=== PATIENT | female | born 1980 | race Caucasian/White ===

== ENCOUNTER 2016-09-14 06:28 | Day surgery (SDC) | payer BC ==
--- NOTE | ~2016-09-14 | EGD ---
EGD REPORT [facility] [address] [address] NAME: NO LEE : [birth year] STATUS : REG [facility] PAT#: [id number] AGE: 36 ADM/REG DATE : 09/14/16 MR#: [id number] REPORT SERV DATE: 09/14/16 DICTATED BY: ALLEN PURCELL DATE: 09/14/16 REPORT STATUS : Draft TRANSCRIBED BY: [facility] DATE: 09/14/16 Endoscopy Center Patient Name: No Lee Date of : 1980 Attending MD: ALLEN PURCELL MD Procedure Date No Time: 09/14/2016 Procedure: Upper GI endoscopy Indications: Anemia, Suspected gastro-esophageal reflux disease, Diarrhea Referring MD: JOSELINE TAYLOR Medicines: Monitored Anesthesia Care Complications: No immediate complications. Procedure: Pre-Anesthesia Assessment: - ASA Grade Assessment: III - A patient with severe systemic disease. After obtaining informed consent, the endoscope was passed under direct vision. Throughout the procedure, the patient's blood pressure, pulse, and oxygen saturations were monitored continuously. The GIF H190 [id number] was introduced through the mouth, and advanced to the second part of duodenum. The upper GI endoscopy was accomplished without difficulty. The patient tolerated the procedure well. Findings: The Z-line was irregular and was found at the gastroesophageal junction. Biopsies were taken with a cold forceps for histology. The entire examined stomach was normal. The cardia and gastric fundus were normal on retroflexion. The duodenal bulb and 2nd part of the duodenum were normal. Biopsies were taken with a cold forceps for histology. Impression: - Z-line irregular, at the gastroesophageal junction. Biopsied. - Normal stomach. - Normal duodenal bulb and 2nd part of the duodenum. Biopsied. Recommendation: - Await pathology results. - Follow an antireflux regimen. Procedure Code(s): --- Professional --- 70780, Esophagogastroduodenoscopy, flexible, transoral; with biopsy, single or multiple EGD REPORT [address] [place]. [address] NAME: NO LEE : [birth year] STATUS : REG [facility] PAT#: [id number] AGE: 36 ADM/REG DATE : 09/14/16 MR#: [id number] REPORT SERV DATE: 09/14/16 DICTATED BY: ALLEN PURCELL DATE: 09/14/16 REPORT STATUS : Draft TRANSCRIBED BY: [employer] DATE: 09/14/16 Diagnosis Code(s): --- Professional --- K22.8, Other specified diseases of esophagus D64.9, Anemia, unspecified R19.7, Diarrhea, unspecified CPT copyright 2013 [employer]. All rights reserved. The codes documented in this report are preliminary and upon drill operator pneumatic review may be revised to meet current compliance requirements. ALLEN PURCELL MD 09/14/2016 9:01 AM This report has been signed electronically. Number of Addenda: 0 Note Initiated On: 09/14/2016 8:49 AM Scope Withdrawal Time 0 hours 0 minutes [address] [place], [place] [address] [address]
--- NOTE | ~2016-09-14 | EGD ---
EGD REPORT [facility] [address] [place] [address] NAME: NO LEE : [birth year] STATUS : REG [facility]#: [id number] AGE: 36 ADM/REG DATE : 09/14/16 MR#: [id number] REPORT SERV DATE: 09/14/16 DICTATED BY: DATE: REPORT STATUS : Draft TRANSCRIBED BY: [employer] DATE: 09/14/16 Endoscopy Center Patient Name: No Lee Date of : 1980 Attending MD: ALLEN PURCELL MD Procedure Date No Time: 09/14/2016 Procedure: Colonoscopy Indications: Clinically significant diarrhea of unexplained origin Referring MD: JOSELINE TAYLOR Medicines: Monitored Anesthesia Care Complications: No immediate complications. Procedure: Pre-Anesthesia Assessment: - ASA Grade Assessment: III - A patient with severe systemic disease. After I obtained informed consent, the scope was passed under direct vision. Throughout the procedure, the patient's blood pressure, pulse, and oxygen saturations were monitored continuously. The PCF [id number] was introduced through the anus and advanced to the cecum, identified by appendiceal orifice and ileocecal valve. The colonoscopy was performed with moderate difficulty due to significant looping and the patient's body habitus. The patient tolerated the procedure well. The quality of the bowel preparation was fair. Findings: The digital rectal exam was normal. Pertinent negatives include no palpable rectal lesions. The ascending colon appeared normal. Biopsies were taken with a cold forceps for evaluation of microscopic colitis. The sigmoid colon appeared normal. Biopsies were taken with a cold forceps for evaluation of microscopic colitis. The rectum appeared normal. Biopsies were taken with a cold forceps for evaluation of microscopic colitis. Hemorrhoids were found during retroflexion and were mild. Impression: - The ascending colon is normal. Biopsied. - The sigmoid colon is normal. Biopsied. - The rectum is normal. Biopsied. - Hemorrhoids. Recommendation: - Patient has a contact number available for emergencies. The signs and symptoms of potential delayed complications were discussed with the patient. Return to normal activities tomorrow. Written discharge EGD REPORT [facility] [address] [facility] [place]. [address] NAME: NO LEE : [birth year] STATUS : REG [facility]#: [id number] AGE: 36 ADM/REG DATE : 09/14/16 MR#: [id number] REPORT SERV DATE: 09/14/16 DICTATED BY: DATE: REPORT STATUS : Draft TRANSCRIBED BY: [email or web address] DATE: 09/14/16 instructions were provided to the patient. - Regular diet. - Continue present medications. - Await pathology results. - Repeat colonoscopy at age 51 for screening purposes. - Return to GI clinic in 1 month. Procedure Code(s): --- Professional --- 61117, Colonoscopy, flexible, proximal to splenic flexure; with biopsy, single or multiple Diagnosis Code(s): --- Professional --- K64.9, Unspecified hemorrhoids R19.7, Diarrhea, unspecified CPT copyright 2013 [employer]. All rights reserved. The codes documented in this report are preliminary and upon former hand review may be revised to meet current compliance requirements. ALLEN PURCELL MD 09/14/2016 9:15 AM This report has been signed electronically. Number of Addenda: 0 Note Initiated On: 09/14/2016 8:43 AM Scope Withdrawal Time 0 hours 6 minutes 8 seconds [address] [place] [address]
[~2016-09-14 06:28] MED LIST: CIP5 PO; FISH OIL PO; HCTZ25B PO; HYDROCHLOROT25 MG PO; INDE80 PO; INDE80LA PO; MARI5; MULTIVIT/MIN PO; NORCO1 TAB PO; OXYCODONE; PR25 PO; PRILOSEC40 MG PO; PROAIR HFA INH; PROTONIX PO; TORATAB; URIBEL PO; WELCHOL 625 MG625 MG PO; ZOFRAN ODT4 MG PO; ZOFRAN ODT4 MG SL
[2016-09-15] MEDS ORDERED: INDE80LA PO (09:38)
[2016-09-15] MEDS ORDERED: HYDROCHLOROT25 MG PO (09:39)
[2016-09-15] MEDS ORDERED: BENTYL10 PO (09:39)
[2016-09-15] MEDS ORDERED: PRILOSEC40 MG PO (09:39)
[2016-09-15] MEDS ORDERED: LEVSINTAB PO (09:40)
[2016-09-15] MEDS ORDERED: ZANTAC 150 PO (09:40)
[2016-09-15] MEDS ORDERED: CLINDA150 PO (09:40)
[2016-09-15] MEDS ORDERED: PROVHFA INH (09:41)
== END 2016-09-14 23:59 | disposition home or self-care (01) ==
LOC: DMU 06:28
PROVIDERS: Internal Medicine Gastroenterology
PROC: 0DBN8ZX Excision of Sigmoid Colon, Via Natural or Artificial Opening Endoscopic, Diagnostic (ICD-10-PCS; 2016-09-14)
PROC: 0DB48ZX Excision of Esophagogastric Junction, Via Natural or Artificial Opening Endoscopic, Diagnostic (ICD-10-PCS; 2016-09-14)
PROC: 0DB28ZX Excision of Middle Esophagus, Via Natural or Artificial Opening Endoscopic, Diagnostic (ICD-10-PCS; 2016-09-14)
PROC: 0DBK8ZX Excision of Ascending Colon, Via Natural or Artificial Opening Endoscopic, Diagnostic (ICD-10-PCS; principal; 2016-09-14 08:30)
PROC: 0DBP8ZX Excision of Rectum, Via Natural or Artificial Opening Endoscopic, Diagnostic (ICD-10-PCS; 2016-09-14 08:30)
DX: K64.9 Unspecified hemorrhoids (principal); R19.7 Diarrhea, unspecified; K22.8 Other specified diseases of esophagus; D64.9 Anemia, unspecified; I10 Essential (primary) hypertension; E66.01 Morbid (severe) obesity due to excess calories; G47.33 Obstructive sleep apnea (adult) (pediatric); N80.0 Endometriosis of uterus; K21.9 Gastro-esophageal reflux disease without esophagitis; G43.909 Migraine, unspecified, not intractable, without status migrainosus; Z90.49 Acquired absence of other specified parts of digestive tract; Z98.890 Other specified postprocedural states; Z87.442 Personal history of urinary calculi; Z90.89 Acquired absence of other organs; Z88.5 Allergy status to narcotic agent; Z88.0 Allergy status to penicillin; Z88.1 Allergy status to other antibiotic agents
CPT/HCPCS: 84703; 88305; J1980; J2550

== ENCOUNTER 2016-09-15 03:56 | Observation (INO) | payer BC ==
--- NOTE | ~2016-09-15 | CN ---
Consultation Report [facility] [address] [place]. [address] NAME: ANNIE LEE : [birth year] STATUS : ADM Gavi PAT#: [id number] AGE: 36 ADM/REG DATE : 09/15/16 MR#: [id number] REPORT SERV DATE: 09/15/16 DICTATED BY: SHAHRAM FARLEY DATE: 09/15/16 REPORT STATUS : Draft TRANSCRIBED BY: MODL DATE: 09/15/16 GI CONSULTATION DATE OF CONSULTATION: 09/15/2016 REASON FOR CONSULTATION: Evaluation and management of abdominal pain. HISTORY OF PRESENT ILLNESS: Ms. Lee is a 36-year-old female patient, known to Dr. Nick Olea in the outpatient setting, who just had EGD and colonoscopy with him on 09/14/2016, who presented last night to the emergency room for chest pain. She states that she has been having "GI issues" for around three months. She tells me that she has lost around 30 pounds. She has had abdominal pain, right upper quadrant as well as lower abdomen. She states she has lost 30 somewhat pounds. She has also experienced nausea, vomiting, and diarrhea. Endoscopy yesterday on the upper exam revealed an irregular Z-line at the GE junction. He did biopsy this area. She had a normal stomach, normal duodenal bulb and second part of the duodenum with biopsies being taken. She then had a colonoscopy, which revealed normal ascending colon. He did biopsies; sigmoid colon was normal with biopsies, rectum was normal with biopsies and she had hemorrhoids. She was discharged to home. She tells me that she told preop that she was having some discomfort in her chest, but EKG and workup was negative, thus they proceeded with the exam. She states when she got home, she tried to become comfortable, was not able to do so, thus presented to [facility] Emergency Room with the chief complaint of chest pain. She has had a CT of the abdomen and pelvis, which was negative; CTA of the chest, which was negative for any PE. Her white blood cell count is normal at 8.8, hemoglobin 11.9, hematocrit is 34.7. Liver function testing was normal. She states that she is comfortable now secondary to IV pain medications, but is fearful that when those wear off, she will be right back "where I started." I have discussed with her, we will address GI medications as well as consider this possibly being musculoskeletal in nature. Her mother is at the bedside. All questions were answered and entertained. PAST MEDICAL HISTORY: Positive for morbid obesity, hypertension, UTI, kidney stones, migraine headaches, endometriosis, atrial fibrillation in 2001, GERD, and dilation of the esophagus. SURGICAL HISTORY: Endometrial ablation x2, eustachian tubes as a child, tonsillectomy, ureteral stent and subsequent extraction, and root canal. FAMILY HISTORY: Noncontributory from a GI standpoint. 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 She denies tobacco. Rare alcohol. No illicit drugs. ALLERGIES: CONSIST OF PENICILLIN, BACTRIM, SUMATRIPTAN, FALLON, AND CODEINE. Consultation Report [address] [address] NAME: ANNIE LEE : [birth year] STATUS : ADM Gavi PAT#: [id number] AGE: 36 ADM/REG DATE : 09/15/16 MR#: [id number] REPORT SERV DATE: 09/15/16 DICTATED BY: SHAHRAM FARLEY DATE: 09/15/16 REPORT STATUS : Draft TRANSCRIBED BY: LIBIA DATE: 09/15/16 HOME MEDICATIONS: Proventil, Cleocin, Bentyl, hydrochlorothiazide, Levsin, Prilosec, Inderal, and Zantac. REVIEW OF SYSTEMS: A 10-point review of systems has been obtained with pertinent positives being addressed in the history of present illness. PERTINENT LABORATORY DATA: Sodium 141, potassium 4, BUN is 10, creatinine is 0.8. White count 8.8, hemoglobin 11.9, hematocrit is 34.7. Total bilirubin 0.7, alkaline phosphatase 97, ALT 17, AST 12, lipase 122. PHYSICAL EXAMINATION: VITAL SIGNS: Temperature is 97.7, pulse 77, respirations 18, blood pressure is 97/57. GENERAL: Reveals an alert, obese female, resting in bed, who awakens to name. Cooperative. No apparent acute distress. Obese body habitus. HEAD, EARS, EYES, NOSE, AND THROAT: Anicteric. Pupils equal, round, reactive to light and accommodation. Normocephalic and atraumatic. NECK: No JVD. No palpable nodes. Supple. LUNGS: Decreased throughout. Normal respiratory effort exhibited. CARDIOVASCULAR: Regular rate and rhythm. ABDOMEN: Soft, nontender, obese, but no rebound or guarding elicited on exam. No organomegaly appreciated. EXTREMITIES: No edema. Normal distal pulses. SKIN: Warm, dry, and intact. ASSESSMENT: 1. Chest pain. 2. Right upper quadrant pain and right breast pain, question pleuritic. 3. Weight loss. 4. Diarrhea. PLAN: 1. I question if this is musculoskeletal or pleuritic in nature. She has a recent, as of 09/14/2016, negative EGD and colonoscopy. She has had a negative CT chest abdomen and pelvis. 2. We will add scheduled simethicone. 3. We will put a Lidoderm patch on her. 4. We will add GI cocktail. 5. Stool studies for diarrhea. We will follow. LEATHA/LIBIA Shahram Consultation Report [address] [facility] [address] NAME: ANNIE LEE : [birth year] STATUS : ADM Gavi PAT#: [id number] AGE: 36 ADM/REG DATE : 09/15/16 MR#: [id number] REPORT SERV DATE: 09/15/16 DICTATED BY: SHAHRAM FARLEY DATE: 09/15/16 REPORT STATUS : Draft TRANSCRIBED BY: MODL DATE: 09/15/16 RANDAL Rubi / [id number] CC: Umberto Prajapati M.D.
--- NOTE | ~2016-09-15 | HP ---
History And Physical [place] [id number] [facility] [place]. [address] NAME: ANNIE LEE : [birth year] STATUS : ADM Gavi PAT#: [id number] AGE: 36 ADM/REG DATE : 09/15/16 MR#: [id number] REPORT SERV DATE: 09/15/16 DICTATED BY: ASHELY LOCO DATE: 09/15/16 REPORT STATUS : Draft TRANSCRIBED BY: MODL DATE: 09/15/16 DATE OF ADMISSION: 09/15/2016 CHIEF COMPLAINT: Abdominal pain and chest pain. HISTORY OF PRESENT ILLNESS: A 36-year-old white female transferred from home to [facility] Emergency Room for the above complaint. Her story is significant for her having this chronic pain for quite some time. She has been followed in clinic as well as by a specialist. She had an upper and lower GI done by Dr. Olea yesterday. Unfortunately no good answers were given. She continued to have worsening pain and nausea and vomiting but no hematemesis or coffee-ground emesis. She presented to the emergency room due to intractable pain. Workup there was unremarkable with multiple tests-please see below-and the patient now is doing better with IV medication. She describes her pain as being located in the right upper quadrant type area, a severe sharp pain, intermittent, radiates around to her right back and up into her substernal upper chest area, has some associated nausea and vomiting, but no other symptoms. She does not know what makes it better or worse. No fever or chills. No rash. No trauma. The patient did have gallbladder surgery done also but states this feels different. No abdominal bloating, no change in stools, and no other GI symptoms otherwise. ALLERGIES: MULTIPLE-PLEASE SEE CHART. MEDICATIONS: Please see MAR. PAST MEDICAL HISTORY: Hypertension, headaches, urolithiasis, GERD, and endometriosis. PAST SURGICAL HISTORY: T and A, PE tubes, cholecystectomy, esophageal dilatation, laparoscopic exam secondary to endometriosis, kidney stone removal. 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 FAMILY HISTORY: Hypertension. REVIEW OF SYSTEMS: Unremarkable except for above history overall. PHYSICAL EXAMINATION: VITAL SIGNS: Blood pressure 109/57, pulse 84, respirations 18, and temperature 98.2. GENERAL: Obese white female, lying in bed, better now with IV medications. HEAD: Normocephalic, atraumatic. EYES: Anicteric. ENT: Moist with good dentition. NECK: No JVD. LUNGS: CTA without RRW. History And Physical [address] [place]. [address] NAME: ANNIE LEE : [birth year] STATUS : ADM Gavi PAT#: [id number] AGE: 36 ADM/REG DATE : 09/15/16 MR#: [id number] REPORT SERV DATE: 09/15/16 DICTATED BY: ASHELY LOCO DATE: 09/15/16 REPORT STATUS : Draft TRANSCRIBED BY: LIBIA DATE: 09/15/16 HEART: Regular rate and rhythm with no murmurs, gallops, or rubs. ABDOMEN: Obese, bowel sounds present, nontender, nondistended. Does have some questionable inconsistent tenderness in the right upper quadrant. No rash. Old surgical scars otherwise with no signs or symptoms of infection. EXTREMITIES: No wasting. NEUROLOGIC: No acute focal deficits. LAB DATA: CBC shows WBC 8, H and H 11.9 and 34.7, and PLT 228. Chemistry shows Na 141, K of 4.0, CO of 104, CO2 of 25, BUN 10, creatinine 0.8, and GFR 96. Glucose 121. Liver function tests are unremarkable. IMAGING: CT of the abdomen and pelvis-otherwise unremarkable-please see report. CT of the chest-no signs or symptoms of PE. CONSULTATION: We will consult GI. IMPRESSION: 1. Intractable abdominal pain. 2. History of GERD. 3. Hypertension. 4. Nausea and vomiting. PLAN: 1. We will admit, consult GI, control pain and watch symptoms. The patient's workup is totally unremarkable. She was counseled on life-threatening causes, pain control, and probable discharge home with outpatient workup. 2. Control nausea and vomiting as the patient is at risk for aspiration. 3. Control blood pressure. She is at risk for CVA. 4. Head of bed at 30 degrees as she is at risk for GERD symptoms. 5. DVT precautions. RH/MODIsaak Ashely Loco M.D. / [id number] CC: Umberto Prajapati M.D.
[2016-09-15 04:42] LABS: BASOPHILS 0.2 %; BASOPHILS ABSOLUTE 0.02 10/3/uL (0.0-0.16); EOSINOPHILS 2.3 %; ER CBC TAT 0 Hrs 03 Mins; HEMATOCRIT 34.7 % (36.0-48.0); HEMOGLOBIN 11.9 g/dL (12.0-16.0); IMMATURE GRANULOCYTES 0.1 %; IMMATURE GRANULOCYTES ABSOLUTE 0.01 10/3/uL (0.0-0.11); LYMPHOCYTES 20.1 %; LYMPHOCYTES ABSOLUTE 1.77 10/3/uL (0.67-4.30); MEAN CORPUS HGB CONC 34.3 g/dL (32.0-36.0); MEAN CORPUSCULAR HEMOGLOB 28.2 pg (26.0-34.0); MEAN CORPUSCULAR VOLUME 82.2 fL (80-100); MEAN PLATELET VOLUME 10.4 fL (9.2-13.0); MONOCYTES 5.5 %; MONOCYTES ABSOLUTE 0.48 10/3/uL (0.21-1.20); NEUTROPHILS 71.8 %; NEUTROPHILS ABSOLUTE 6.31 10/3/uL (2.02-8.40); PLATELET COUNT 228 10/3/uL (150-400); RED CELL COUNT 4.22 10/6/uL (4.0-5.6); WHITE BLOOD CELLS 8.8 10/3/uL (4.5-10.5)
[2016-09-15 04:43] LABS: MANUAL DIFF NO %
[2016-09-15 04:56] LABS: INTERNATIONAL NORMAL RATI 1.1 UNITS (-); PARTIAL THROMBO TIME 27.6 SEC (22.5-37.2)
[2016-09-15 04:58] LABS: BUN (BLOOD UREA NITROGEN) 10 MG/DL (6-23); CALCIUM, SERUM 8.5 MG/DL (8.5-10.4); CHEST PAIN PROFILE TAT 0 Hrs 19 Mins; CHLORIDE, SERUM 104 MMOL/L (96-112); CO2 (CARBON DIOXIDE) 25 MMOL/L (24-34); GFR AFRICAN AMERICAN 111 ML/MIN (>=60); GFR NON AFRICAN AMERICAN 96 ML/MIN (>=60); GLUCOSE, SERUM 121 MG/DL (60-99); SODIUM, SERUM 141 MMOL/L (135-148); TROPONIN I <0.02 NG/ML (<0.05)
[2016-09-15 07:20] LABS: TROPONIN I <0.02 NG/ML (<0.05)
[2016-09-15 08:18] LABS: ALBUMIN 2.8 G/DL (3.5-5.0); ALKALINE PHOSPHATASE 97 U/L (45-117); DIRECT BILIRUBIN 0.1 MG/DL (0.0-0.4); INDIRECT BILIRUBIN(NOT ORDER) 0.6 MG/DL (0.1-0.9); SGOT(AST) 12 U/L (5-40); SGPT(ALT) 17 U/L (5-65); TOTAL BILIRUBIN 0.7 MG/DL (0-1.2); TOTAL PROTEIN 6.4 G/DL (6.0-8.5)
[2016-09-15] MEDS ORDERED: INDE80LA PO (09:38)
[2016-09-15] MEDS ORDERED: PRILOSEC40 MG PO (09:39)
[2016-09-15] MEDS ORDERED: HYDROCHLOROT25 MG PO (09:39)
[2016-09-15] MEDS ORDERED: BENTYL10 PO (09:39)
[2016-09-15] MEDS ORDERED: LEVSINTAB PO (09:40)
[2016-09-15] MEDS ORDERED: ZANTAC 150 PO (09:40)
[2016-09-15] MEDS ORDERED: CLINDA150 PO (09:40)
[2016-09-15] MEDS ORDERED: PROVHFA INH (09:41)
[2016-09-16 05:43] LABS: BASOPHILS 0.2 %; BASOPHILS ABSOLUTE 0.01 10/3/uL (0.0-0.16); EOSINOPHILS 4.3 %; EOSINOPHILS ABSOLUTE 0.23 10/3/uL (0.0-0.53); HEMATOCRIT 32.4 % (36.0-48.0); IMMATURE GRANULOCYTES 0.2 %; IMMATURE GRANULOCYTES ABSOLUTE 0.01 10/3/uL (0.0-0.11); LYMPHOCYTES ABSOLUTE 1.49 10/3/uL (0.67-4.30); MEAN CORPUSCULAR HEMOGLOB 28.1 pg (26.0-34.0); MEAN CORPUSCULAR VOLUME 82.9 fL (80-100); MEAN PLATELET VOLUME 10.2 fL (9.2-13.0); MONOCYTES 7.9 %; MONOCYTES ABSOLUTE 0.42 10/3/uL (0.21-1.20); NEUTROPHILS 59.4 %; NEUTROPHILS ABSOLUTE 3.17 10/3/uL (2.02-8.40); PLATELET COUNT 194 10/3/uL (150-400); RED CELL COUNT 3.91 10/6/uL (4.0-5.6); WHITE BLOOD CELLS 5.3 10/3/uL (4.5-10.5)
[2016-09-16 05:50] LABS: MANUAL DIFF NO %
[2016-09-16 05:57] LABS: A/G RATIO 0.7 (0.7-1.9); ALBUMIN 2.6 G/DL (3.5-5.0); ALKALINE PHOSPHATASE 92 U/L (45-117); BUN (BLOOD UREA NITROGEN) 7 MG/DL (6-23); CALCIUM, SERUM 8.2 MG/DL (8.5-10.4); CHLORIDE, SERUM 107 MMOL/L (96-112); CHOL/HDL RATIO(NOT ORDER) 3.7 (0-5); CHOLESTEROL 132 MG/DL (< 200); CO2 (CARBON DIOXIDE) 27 MMOL/L (24-34); GFR AFRICAN AMERICAN 130 ML/MIN (>=60); GFR NON AFRICAN AMERICAN 112 ML/MIN (>=60); GLOBULIN 3.5 G/DL (2.5-4.1); HDL CHOLESTEROL 36 MG/DL (> 49); LDL CHOLESTEROL 77 MG/DL (< 130); NON-HDL CHOLESTEROL 96 MG/DL (< 160); POTASSIUM, SERUM 3.5 MMOL/L (3.5-5.3); SGOT(AST) 13 U/L (5-40); SGPT(ALT) 17 U/L (5-65); SODIUM, SERUM 142 MMOL/L (135-148); TOTAL BILIRUBIN 0.8 MG/DL (0-1.2); TOTAL PROTEIN 6.1 G/DL (6.0-8.5); TRIGLYCERIDE 96 MG/DL (< 150)
[2016-09-16 05:58] LABS: GLUCOSE, SERUM 85 MG/DL (60-99)
[2016-09-17 05:20] LABS: BASOPHILS 0.3 %; BASOPHILS ABSOLUTE 0.02 10/3/uL (0.0-0.16); EOSINOPHILS 3.5 %; EOSINOPHILS ABSOLUTE 0.23 10/3/uL (0.0-0.53); HEMATOCRIT 35.1 % (36.0-48.0); IMMATURE GRANULOCYTES 0.3 %; IMMATURE GRANULOCYTES ABSOLUTE 0.02 10/3/uL (0.0-0.11); LYMPHOCYTES 25.5 %; LYMPHOCYTES ABSOLUTE 1.69 10/3/uL (0.67-4.30); MANUAL DIFF NO %; MEAN CORPUS HGB CONC 34.2 g/dL (32.0-36.0); MEAN CORPUSCULAR HEMOGLOB 28.4 pg (26.0-34.0); MEAN PLATELET VOLUME 10.1 fL (9.2-13.0); MONOCYTES 7.4 %; MONOCYTES ABSOLUTE 0.49 10/3/uL (0.21-1.20); NEUTROPHILS ABSOLUTE 4.17 10/3/uL (2.02-8.40); PLATELET COUNT 223 10/3/uL (150-400); RBC DISTRIBUTION WIDTH 13.8 % (12.0-16.0); RED CELL COUNT 4.23 10/6/uL (4.0-5.6); WHITE BLOOD CELLS 6.6 10/3/uL (4.5-10.5)
[2016-09-17 05:30] LABS: BUN (BLOOD UREA NITROGEN) 5 MG/DL (6-23); CALCIUM, SERUM 8.5 MG/DL (8.5-10.4); CHLORIDE, SERUM 105 MMOL/L (96-112); CO2 (CARBON DIOXIDE) 27 MMOL/L (24-34); CREATININE 0.76 MG/DL (0.55-1.02); GFR AFRICAN AMERICAN 118 ML/MIN (>=60); GFR NON AFRICAN AMERICAN 102 ML/MIN (>=60); POTASSIUM, SERUM 3.7 MMOL/L (3.5-5.3); SODIUM, SERUM 142 MMOL/L (135-148)
[2016-09-17 05:33] LABS: GLUCOSE, SERUM 127 MG/DL (60-99)
[2016-09-17] MEDS ORDERED: LIBRAX PO (18:17)
== END 2016-09-17 18:31 | disposition home or self-care (01) ==
LOC: ER 03:56 → CDU1 10:26 → CDU2 11:19
PROVIDERS: Family Medicine; Hospitalist; Nurse Practitioner
DX: R07.9 Chest pain, unspecified (principal); R10.11 Right upper quadrant pain; I10 Essential (primary) hypertension; K21.9 Gastro-esophageal reflux disease without esophagitis; G43.909 Migraine, unspecified, not intractable, without status migrainosus; E66.01 Morbid (severe) obesity due to excess calories; I48.91 Unspecified atrial fibrillation; Z98.890 Other specified postprocedural states; Z87.440 Personal history of urinary (tract) infections; Z90.49 Acquired absence of other specified parts of digestive tract; Z87.442 Personal history of urinary calculi; Z88.1 Allergy status to other antibiotic agents; Z88.0 Allergy status to penicillin; Z88.5 Allergy status to narcotic agent; Z88.8 Allergy status to other drugs, medicaments and biological substances; Z79.899 Other long term (current) drug therapy
CPT/HCPCS: 71010; 71275; 74176; 80048; 80053; 80061; 80076; 83605; 83690; 83735; 84484; 84703; 85025; 85610; 85730; 93005; 96372; 96374; 96375; 96376; 99285; A9270-GY; G0378; J1170; J1200; J1980; J2405; J2550; Q9967

== ENCOUNTER 2016-10-22 19:19 | Emergency (ER) | payer BC ==
[2016-10-22 17:34] LABS: WBC (NOT ORDERED) (RFLEX) 0 (0-5)
[2016-10-22 17:39] LABS: BASOPHILS 0.2 %; BASOPHILS ABSOLUTE 0.01 10/3/uL (0.0-0.16); EOSINOPHILS 1.3 %; EOSINOPHILS ABSOLUTE 0.07 10/3/uL (0.0-0.53); ER CBC TAT 0 Hrs 13 Mins; HEMATOCRIT 36.3 % (36.0-48.0); HEMOGLOBIN 12.5 g/dL (12.0-16.0); IMMATURE GRANULOCYTES 0.5 %; IMMATURE GRANULOCYTES ABSOLUTE 0.03 10/3/uL (0.0-0.11); LYMPHOCYTES 5.2 %; LYMPHOCYTES ABSOLUTE 0.29 10/3/uL (0.67-4.30); MEAN CORPUS HGB CONC 34.4 g/dL (32.0-36.0); MEAN CORPUSCULAR VOLUME 81.4 fL (80-100); MONOCYTES 9.2 %; MONOCYTES ABSOLUTE 0.51 10/3/uL (0.21-1.20); NEUTROPHILS 83.6 %; NEUTROPHILS ABSOLUTE 4.66 10/3/uL (2.02-8.40); PLATELET COUNT 230 10/3/uL (150-400); RBC DISTRIBUTION WIDTH 13.9 % (12.0-16.0); RED CELL COUNT 4.46 10/6/uL (4.0-5.6); WHITE BLOOD CELLS 5.6 10/3/uL (4.5-10.5)
[2016-10-22 17:43] LABS: ASCORBIC ACID (UR NOT ORDER) NEG (NEG); BILIRUBIN, URINE NEGATIVE (NEG); ER URINALYSIS TAT 0 Hrs 10 Mins; KETONE, URINE NEGATIVE (NEG); LEUKOCYTE ESTERASE(NOT OR NEG (NEG); NITRITE (URINE) NEG (NEG)
[2016-10-22 17:46] LABS: CALCIUM, SERUM 8.5 MG/DL (8.5-10.4); CHLORIDE, SERUM 105 MMOL/L (96-112); CO2 (CARBON DIOXIDE) 24 MMOL/L (24-34); CREATININE 0.95 MG/DL (0.55-1.02); GFR AFRICAN AMERICAN 90 ML/MIN (>=60); GFR NON AFRICAN AMERICAN 78 ML/MIN (>=60); GLUCOSE, SERUM 130 MG/DL (60-99); POTASSIUM, SERUM 3.3 MMOL/L (3.5-5.3); SGOT(AST) 16 U/L (5-40); SGPT(ALT) 20 U/L (5-65); SODIUM, SERUM 137 MMOL/L (135-148); TOTAL BILIRUBIN 0.8 MG/DL (0-1.2)
[2016-10-22 17:47] LABS: MANUAL DIFF NO %
[2016-10-22 17:50] LABS: A/G RATIO 0.8 (0.7-1.9); ALBUMIN 3.5 G/DL (3.5-5.0); ALKALINE PHOSPHATASE 113 U/L (45-117); BUN (BLOOD UREA NITROGEN) 10 MG/DL (6-23); GLOBULIN 4.4 G/DL (2.5-4.1); TOTAL PROTEIN 7.9 G/DL (6.0-8.5)
[2016-10-22 18:02] LABS: PLATELET ESTIMATE ADQ (ADEQUATE); RBC MORPHOLOGY NORM (NORMAL)
[~2016-10-22 19:19] MED LIST changes: +BENTYL10 PO; +CLINDA150 PO; +LEVSINTAB PO; +LIBRAX PO; +PROVHFA INH; +ZANTAC 150 PO
== END 2016-10-22 22:16 | disposition home or self-care (01) ==
LOC: ER 19:19
PROVIDERS: Emergency Medicine
DX: R19.7 Diarrhea, unspecified (principal); R11.2 Nausea with vomiting, unspecified; Z88.0 Allergy status to penicillin; Z88.1 Allergy status to other antibiotic agents; Z88.5 Allergy status to narcotic agent; Z88.2 Allergy status to sulfonamides; Z91.018 Allergy to other foods; Z79.899 Other long term (current) drug therapy
CPT/HCPCS: 74022; 80053; 81001; 83690; 84703; 85025; 87045; 87046; 87046-59; 87328; 87329; 87493; 87493-59; 87899; 87899-59; 89055; 96374; 96375; 99284; A9270-GY; J2405; J2765